=== PATIENT | male | born 1965 | race Hispanic/Latino ===

== ENCOUNTER → 2020-06-07 | Outpatient (CLI) | payer MEDICARE ==
[~2020-06-07] MED LIST: GADODIAMIDE 10 MMOL/20 ML VIAL IV ONE
== END | disposition home or self-care (01) ==
LOC: RAH 10:46
PROVIDERS: ATTEND Neurological Surgery
DX: M50.01 Cervical disc disorder with myelopathy, high cervical region (principal); M50.023 Cervical disc disorder at C6-C7 level with myelopathy; M50.022 Cervical disc disorder at C5-C6 level with myelopathy; M47.12 Other spondylosis with myelopathy, cervical region; M48.02 Spinal stenosis, cervical region
CPT/HCPCS: 72156; A9579